=== PATIENT | male | born 1985 | race Caucasian/White ===

== ENCOUNTER 2019-01-25 09:42 | Emergency (ER) | payer SELFPAY ==
[~2019-01-25] VITALS: Ht 162.6 cm; Wt 69.9 kg
[2019-01-25 09:48] VITALS: BP 119/72
--- NOTE | 2019-01-25 09:50 | NUR ---
34 Y MALE BIB SELF C/O ITCHY AND WATERY EYES, EYE PAIN X 1 MONTH. PER PT, THE PAIN HAS WORSENED OVER THE PAST WEEK. PAIN 3/10. +REDNESS BOTH EYES. PT STATES HE HAS NO DIFFICULTY WITH VISION. AA0X4, PT HR 48. BED IS DOWN, LOCKED, BED RAIL X 1, ERMD NOTIFIED. DENIES PMH
--- NOTE | 2019-01-25 10:14 | NUR ---
DR OSEI AT BEDSIDE
[2019-01-25 10:43] VITALS: BP 119/77
--- NOTE | 2019-01-25 10:43 | NUR ---
Patient discharged with v/s stable. Written and verbal after care instructions given and explained. Patient alert, oriented and verbalized understanding of instructions. Ambulatory with steady gait. All questions addressed prior to discharge. ID band removed. Patient advised to follow up with PMD. Rx of KETOTIFEN FUMARATE given. Patient educated on indication of medication including possible reaction and side effects. Opportunity to ask questions provided and answered.
== END 2019-01-25 10:43 | disposition home or self-care (01) ==
LOC: MED 09:42
DX: H11.001 Unspecified pterygium of right eye (principal)
CPT/HCPCS: 99282

== ENCOUNTER 2020-09-06 07:20 | Emergency (ER) | payer SELFPAY ==
[~2020-09-06] VITALS: Ht 170.2 cm; Wt 81.2 kg
[2020-09-06 07:22] VITALS: BP 125/77
--- NOTE | 2020-09-06 07:25 | NUR ---
PT TAKEN TO BED 11.
--- NOTE | 2020-09-06 07:31 | NUR ---
35/M presents to ED with complaints of generalized abd pain, sore throat, chills, headache x3 days. Pt denies any contacts with covid exposures. Pt states he has been taking Tylenol with relief of headache. Denies N/V/D.
--- NOTE | 2020-09-06 07:40 | NUR ---
Patient being evaluated by Dr. Redman at bedside.
[2020-09-06] MEDS ORDERED: FAMOTIDINE 20 MG TAB PO ONE (07:45)
--- NOTE | 2020-09-06 07:56 | NUR ---
body art technician at pt bedside.
--- NOTE | 2020-09-06 08:17 | NUR ---
U/s tech at pt bedside.
[2020-09-06 08:27] LABS: BASOPHILS % (AUTO) 0.6 % (0.0-2.0); EOSINOPHILS % (AUTO) 0.1 % (0.0-4.0); HEMATOCRIT 45.9 % (36-52); HEMOGLOBIN 15.6 g/dL (12.0-18.0); LYMPHOCYTES # (AUTO) 0.7 K/uL (2.0-11.5); LYMPHOCYTES % (AUTO) 21.7 % (20.5-51.1); MEAN CORPUSCULAR HEMOGLOBIN 28 pg (27-31); MEAN CORPUSCULAR HGB CONC 34 g/dL (33-37); MEAN CORPUSCULAR VOLUME 83.6 fL (80-94); MONOCYTES # (AUTO) 0.3 K/uL (0.8-1.0); MONOCYTES % (AUTO) 9.6 % (1.7-9.3); NEUTROPHILS # (AUTO) 2.1 K/uL (1.8-7.7); PLATELET COUNT (AUTO) 195 K/uL (140-450); RED BLOOD CELL COUNT(AUTO) 5.49 MIL/uL (4.20-6.10); RED CELL DISTRIBUTION WIDTH 13.6 % (11.6-13.7); WHITE BLOOD COUNT (AUTO) 3.1 K/uL (4.8-10.8)
[2020-09-06 08:31] LABS: ALBUMIN 4.1 g/dL (3.4-5.0); ANION GAP 11.2 (8-16); CARBON DIOXIDE 28.5 mmol/L (21-32); CREATININE 0.9 mg/dL (0.6-1.3); POTASSIUM 3.7 mmol/L (3.5-5.1); TOTAL BILIRUBIN 0.5 mg/dL (0.0-1.0)
[2020-09-06 10:23] VITALS: BP 125/77
--- NOTE | 2020-09-06 10:23 | NUR ---
Patient discharged with v/s stable. Written and verbal after care instructions given and explained. Patient alert, oriented and verbalized understanding of instructions. Ambulatory with steady gait. All questions addressed prior to discharge. ID band removed. Patient advised to follow up with PMD. Rx of pepcid 40mg tab daily po given. Patient educated on indication of medication including possible reaction and side effects. Opportunity to ask questions provided and answered.
== END 2020-09-06 10:23 | disposition home or self-care (01) ==
LOC: MED 07:20
DX: U07.1 COVID-19 (principal); K29.70 Gastritis, unspecified, without bleeding
CPT/HCPCS: 36415; 76705; 80053; 81002; 83690; 85025; 99284

== ENCOUNTER 2023-08-13 20:31 | Emergency (ER) | payer SELFPAY ==
[~2023-08-13] VITALS: Ht 165.1 cm; Wt 74.8 kg
[2023-08-13 20:40] VITALS: BP 133/72; PULSE 103; RESP 18; TEMP 98.4; O2SAT 95
[2023-08-13 21:43] LABS: APPEARANCE,URINE CLEAR (CLEAR); BILIRUBIN,URINE NEGATIVE (NEGATIVE); BLOOD, URINE NEGATIVE (NEGATIVE); COLOR,URINE YELLOW (YELLOW); LEUKOCYTE ESTERASE ,URINE NEGATIVE (NEGATIVE); NITRITE, URINE NEGATIVE (NEGATIVE); PROTEIN,URINE NEGATIVE (NEGATIVE); UGLUCOSE NEGATIVE (NEGATIVE); UROBILINOGEN,URINE 0.2 EU/dL (0.2 - 1)
[2023-08-13 21:53] VITALS: BP 133/72; PULSE 103; RESP 18; TEMP 98.4; O2SAT 95
== END 2023-08-13 21:53 | disposition left against medical advice (07) ==
LOC: MED 20:31
DX: R10.84 Generalized abdominal pain (principal); Z53.21 Procedure and treatment not carried out due to patient leaving prior to being seen by health care provider
CPT/HCPCS: 81003; 99281

== ENCOUNTER 2023-08-13 22:46 | Emergency (ER) | payer SELFPAY ==
[~2023-08-13] VITALS: Ht 165.1 cm; Wt 74.8 kg
[2023-08-13 23:00] VITALS: BP 108/76; PULSE 69; RESP 17; TEMP 98.4; O2SAT 100
== END 2023-08-14 01:58 | disposition left against medical advice (07) ==
LOC: MED 22:46
DX: R10.84 Generalized abdominal pain (principal); Z53.21 Procedure and treatment not carried out due to patient leaving prior to being seen by health care provider
CPT/HCPCS: 99281

== ENCOUNTER 2023-10-08 13:46 | Emergency (ER) | payer MEDICAID ==
[~2023-10-08] VITALS: Ht 167.6 cm; Wt 72.6 kg
[2023-10-08 13:57] VITALS: BP 184/108; PULSE 96; RESP 18; TEMP 98.6; O2SAT 98
[2023-10-08] MEDS ORDERED: MORPHINE SULFATE 4 MG/ML SYR IVP ONE (14:50)
[2023-10-08] MEDS ORDERED: ONDANSETRON 4 MG/2 ML VIAL IVP ONE (14:50)
[2023-10-08 15:05] LABS: APPEARANCE,URINE CLEAR (CLEAR); BILIRUBIN,URINE NEGATIVE (NEGATIVE); BLOOD, URINE NEGATIVE (NEGATIVE); COLOR,URINE YELLOW (YELLOW); LEUKOCYTE ESTERASE ,URINE NEGATIVE (NEGATIVE); NITRITE, URINE NEGATIVE (NEGATIVE); PROTEIN,URINE NEGATIVE (NEGATIVE); UGLUCOSE NEGATIVE (NEGATIVE); UROBILINOGEN,URINE 0.2 EU/dL (0.2 - 1)
[2023-10-08 15:31] LABS: BASOPHILS % (AUTO) 0.5 % (0.0-2.0); EOSINOPHILS % (AUTO) 0.2 % (0.0-4.0); HEMATOCRIT 44.1 % (36-52); HEMOGLOBIN 15.3 g/dL (12.0-18.0); LYMPHOCYTES # (AUTO) 1.5 K/uL (2.0-11.5); LYMPHOCYTES % (AUTO) 15.7 % (20.5-51.1); MEAN CORPUSCULAR HEMOGLOBIN 29 pg (27-31); MEAN CORPUSCULAR HGB CONC 35 g/dL (33-37); MEAN CORPUSCULAR VOLUME 84.1 fL (80-94); MONOCYTES # (AUTO) 0.7 K/uL (0.8-1.0); MONOCYTES % (AUTO) 6.7 % (1.7-9.3); NEUTROPHILS # (AUTO) 7.5 K/uL (1.8-7.7); NEUTROPHILS % (AUTO) 76.9 % (42.2-75.2); PLATELET COUNT (AUTO) 322 K/uL (140-450); RED BLOOD CELL COUNT(AUTO) 5.25 MIL/uL (4.20-6.10); RED CELL DISTRIBUTION WIDTH 14.1 % (11.6-13.7); WHITE BLOOD COUNT (AUTO) 9.8 K/uL (4.8-10.8)
[2023-10-08 15:53] LABS: ALBUMIN 3.9 g/dL (3.4-5.0); ANION GAP 13.2 (8-16); CALCIUM 8.9 mg/dL (8.5-10.1); CARBON DIOXIDE 25.6 mmol/L (21-32); CREATININE 0.8 mg/dL (0.6-1.3); POTASSIUM 3.8 mmol/L (3.5-5.1); TOTAL BILIRUBIN 0.5 mg/dL (0.0-1.0); TOTAL PROTEIN, SERUM 8.2 g/dL (6.4-8.2)
[2023-10-08 18:43] VITALS: BP 117/71; PULSE 85; RESP 17; TEMP 98.6; O2SAT 98
== END 2023-10-08 18:43 | disposition home or self-care (01) ==
LOC: MED 13:46
DX: K52.9 Noninfective gastroenteritis and colitis, unspecified (principal); K42.9 Umbilical hernia without obstruction or gangrene; L72.8 Other follicular cysts of the skin and subcutaneous tissue; N50.812 Left testicular pain; R03.0 Elevated blood-pressure reading, without diagnosis of hypertension; Z79.899 Other long term (current) drug therapy
CPT/HCPCS: 36415; 74177; 76870; 80053; 81003; 83690; 85025; 96374; 96375; 99285; J2270; J2405; Q0092; Q9967

== ENCOUNTER 2023-12-17 19:33 | Emergency (ER) | payer SELFPAY ==
[~2023-12-17] VITALS: Ht 172.7 cm; Wt 74.8 kg
[2023-12-17 19:50] VITALS: BP 132/87; PULSE 99; RESP 20; TEMP 97.4; O2SAT 98
[2023-12-17 20:18] LABS: APPEARANCE,URINE CLEAR (CLEAR); BILIRUBIN,URINE NEGATIVE (NEGATIVE); BLOOD, URINE NEGATIVE (NEGATIVE); COLOR,URINE YELLOW (YELLOW); LEUKOCYTE ESTERASE ,URINE NEGATIVE (NEGATIVE); NITRITE, URINE NEGATIVE (NEGATIVE); PROTEIN,URINE NEGATIVE (NEGATIVE); UGLUCOSE TRACE (NEGATIVE); UROBILINOGEN,URINE 0.2 EU/dL (0.2 - 1)
[2023-12-17 20:23] LABS: BASOPHILS % (AUTO) 0.4 % (0.0-2.0); EOSINOPHILS % (AUTO) 0.1 % (0.0-4.0); HEMATOCRIT 45.5 % (36-52); HEMOGLOBIN 15.7 g/dL (12.0-18.0); LYMPHOCYTES # (AUTO) 1.8 K/uL (2.0-11.5); LYMPHOCYTES % (AUTO) 16.5 % (20.5-51.1); MEAN CORPUSCULAR HEMOGLOBIN 29 pg (27-31); MEAN CORPUSCULAR HGB CONC 35 g/dL (33-37); MEAN CORPUSCULAR VOLUME 84.5 fL (80-94); MONOCYTES # (AUTO) 0.7 K/uL (0.8-1.0); MONOCYTES % (AUTO) 6.7 % (1.7-9.3); NEUTROPHILS # (AUTO) 8.1 K/uL (1.8-7.7); NEUTROPHILS % (AUTO) 76.3 % (42.2-75.2); PLATELET COUNT (AUTO) 336 K/uL (140-450); RED BLOOD CELL COUNT(AUTO) 5.39 MIL/uL (4.20-6.10); RED CELL DISTRIBUTION WIDTH 14.5 % (11.6-13.7); WHITE BLOOD COUNT (AUTO) 10.7 K/uL (4.8-10.8)
[2023-12-17 20:35] LABS: ANION GAP 11.7 (8-16); CALCIUM 8.7 mg/dL (8.5-10.1); CARBON DIOXIDE 27.4 mmol/L (21-32); CREATININE 0.9 mg/dL (0.6-1.3); POTASSIUM 4.1 mmol/L (3.5-5.1)
[2023-12-17 20:41] LABS: ALBUMIN 3.8 g/dL (3.4-5.0); BILIRUBIN,DIRECT 0.1 mg/dL (0.0-0.3); TOTAL BILIRUBIN 0.4 mg/dL (0.0-1.0); TOTAL PROTEIN, SERUM 8.5 g/dL (6.4-8.2)
[2023-12-17] MEDS: TAMSULOSIN 0.4 MG CAP PO SCH (22:42)
[2023-12-17] MEDS: PHENAZOPYRIDINE 100 MG TAB PO ONE (22:42)
[2023-12-17] MEDS ORDERED: PYR100 PO (23:04)
[2023-12-17] MEDS ORDERED: TAMS0.4C96 PO (23:04)
[2023-12-17 23:20] VITALS: BP 140/80; PULSE 84; RESP 20; TEMP 97.4; O2SAT 98
== END 2023-12-17 23:20 | disposition home or self-care (01) ==
LOC: MED 19:33
DX: R39.11 Hesitancy of micturition (principal); Z79.899 Other long term (current) drug therapy
CPT/HCPCS: 36415; 80048; 80076; 81003; 83690; 85025; 99283

== ENCOUNTER 2024-01-27 19:29 | Emergency (ER) | payer SELFPAY ==
[~2024-01-27 19:29] MED LIST: PYR100 PO; TAMS0.4C96 PO
== END 2024-01-27 20:00 | disposition left against medical advice (07) ==
LOC: MED 19:29
DX: R10.9 Unspecified abdominal pain (principal); Z53.21 Procedure and treatment not carried out due to patient leaving prior to being seen by health care provider

== ENCOUNTER 2024-03-21 20:45 | Emergency (ER) | payer SELFPAY ==
[~2024-03-21] VITALS: Ht 165.1 cm; Wt 68.0 kg
[2024-03-21 21:36] VITALS: BP 144/81; PULSE 68; RESP 22; TEMP 97.6; O2SAT 99
[2024-03-21 21:55] LABS: APPEARANCE,URINE CLEAR (CLEAR); BILIRUBIN,URINE NEGATIVE (NEGATIVE); BLOOD, URINE NEGATIVE (NEGATIVE); COLOR,URINE YELLOW (YELLOW); LEUKOCYTE ESTERASE ,URINE NEGATIVE (NEGATIVE); NITRITE, URINE NEGATIVE (NEGATIVE); PROTEIN,URINE NEGATIVE (NEGATIVE); UGLUCOSE NEGATIVE (NEGATIVE); UROBILINOGEN,URINE 0.2 EU/dL (0.2 - 1)
== END 2024-03-21 23:31 | disposition left against medical advice (07) ==
LOC: MED 20:45
DX: R10.30 Lower abdominal pain, unspecified (principal); Z53.21 Procedure and treatment not carried out due to patient leaving prior to being seen by health care provider
CPT/HCPCS: 81003; 87491